=== PATIENT | female | born 1970 | race Caucasian/White ===

== ENCOUNTER 2017-09-21 18:38 | Emergency (ER) | payer MEDICAID ==
[~2017-09-21] VITALS: Ht 149.9 cm; Wt 58.7 kg
[2017-09-21 20:20] VITALS: BP 130/82
== END 2017-09-21 20:33 | disposition home or self-care (01) ==
LOC: ER 18:38
DX: F32.9 Major depressive disorder, single episode, unspecified (principal); Z76.0 Encounter for issue of repeat prescription

== ENCOUNTER 2017-10-25 18:15 | Emergency (ER) | payer MEDICAID ==
[~2017-10-25] VITALS: Ht 149.9 cm; Wt 45.4 kg
[2017-10-25 18:21] VITALS: BP 119/80
== END 2017-10-25 23:18 | disposition home or self-care (01) ==
LOC: ER 18:19
DX: M25.552 Pain in left hip (principal); M79.672 Pain in left foot; Z53.21 Procedure and treatment not carried out due to patient leaving prior to being seen by health care provider
CPT/HCPCS: 73610; 73630

== ENCOUNTER 2018-08-09 14:34 | Emergency (ER) | payer MEDICAID ==
[~2018-08-09] VITALS: Ht 149.9 cm; Wt 49.9 kg
[2018-08-09 14:45] VITALS: BP 143/90
== END 2018-08-09 20:28 | disposition home or self-care (01) ==
LOC: ER 14:35
DX: S33.5XXA Sprain of ligaments of lumbar spine, initial encounter (principal); M54.42 Lumbago with sciatica, left side; W18.39XA Other fall on same level, initial encounter; Y93.89 Activity, other specified; Y99.8 Other external cause status; Y92.89 Other specified places as the place of occurrence of the external cause
CPT/HCPCS: 72100; 72220